=== PATIENT | male | born 1980 | race Caucasian/White ===

== ENCOUNTER 2017-03-03 08:15 | Outpatient (RCR) | payer BC ==
[~2017-03-03 08:15] MED LIST: BACTRIM DS 8001 TAB PO; CEPHALEXIN500 M1 PO; DOXYCYCLINE 10100 MG PO; FISH OIL 1000MG1 CAP PO; LORTAB 7.5/5001 TAB PO; NO HOME MEDICATIONS; PERCOCET 5/321 UDTAB PO; VITAMIN D1000 IU
== END 2017-03-08 | disposition still patient (30) ==
LOC: MKS.ESL.PT
DX: M43.17 Spondylolisthesis, lumbosacral region (principal); M54.5 Low back pain; G80.8 Other cerebral palsy
CPT/HCPCS: G0283-GP

== ENCOUNTER 2017-07-21 08:15 | Outpatient (RCR) | payer BC | END 2017-09-28 | LOC: MKS.ESL.PT | DX: M43.17 Spondylolisthesis, lumbosacral region (principal); G80.8 Other cerebral palsy; R25.2 Cramp and spasm ==

== ENCOUNTER 2018-01-04 08:15 | Outpatient (RCR) | payer BC | END 2018-02-07 | disposition home or self-care (01) | LOC: MKS.ESL.PT | DX: Z51.89 Encounter for other specified aftercare (principal); M62.838 Other muscle spasm ==

== ENCOUNTER 2018-05-10 08:15 | Outpatient (RCR) | payer BC | END 2018-05-30 | disposition home or self-care (01) | LOC: MKS.ESL.PT | DX: G80.1 Spastic diplegic cerebral palsy (principal); Z91.81 History of falling | CPT/HCPCS: G0283-GP ==

== ENCOUNTER 2019-02-15 09:51 | Outpatient (RCR) | payer BC | END 2019-02-18 09:07 | disposition home or self-care (01) | LOC: MKS.ESL.OT 09:51 | DX: G80.8 Other cerebral palsy (principal) ==

== ENCOUNTER → 2022-02-01 08:48 | Outpatient (RCR) | payer MEDICARE | END | disposition home or self-care (01) | LOC: MKS.ESL.PT 10-15 09:00 | DX: G80.9 Cerebral palsy, unspecified (principal) ==